=== PATIENT | female | born 1995 ===

== ENCOUNTER 2022-10-26 03:54 | Emergency (ER) | payer SELFPAY ==
[2022-10-26] MEDS ORDERED: hydrOXYzine HCl 25 MG Tab PO ONE (05:00)
[2022-10-26] MEDS ORDERED: FLUoxetine 10 MG Cap PO ONE (05:00)
== END 2022-10-26 06:33 | disposition home or self-care (01) ==
LOC: DL.ED 03:54
DX: F31.0 Bipolar disorder, current episode hypomanic (principal); Z59.00 Homelessness unspecified; Z51.81 Encounter for therapeutic drug level monitoring; Z79.82 Long term (current) use of aspirin
CPT/HCPCS: 99283; 99285; A9270